=== PATIENT | male | born 1930 | race Caucasian/White ===

== ENCOUNTER 2016-11-04 10:16 | Day surgery (SDC) | payer OTHER ==
--- NOTE | 2016-11-03 21:47 | GHP ---
[f rep st] HISTORY AND PHYSICAL DATE OF ADMISSION: 11/04/2016 The patient is an 85-year-old male who returns to our office to discuss port placement for chemothera py. The patient has pancreatic cancer and underwent surgery with Dr. Mariscal in late July 2016. Hi s hospital course was significant for the development of pneumonia as well as episode of atrial fibr illation. ALLERGIES: Sulfa. MEDICATIONS: Aspirin, Flexeril, Flonase, terazosin, triamcinolone, vitamin D. PAST SURGICAL HISTORY: Pancreatic duodenectomy, appendectomy, hernia repair, cataract surgery. PAST MEDICAL HISTORY: Pancreatic cancer, hypertension. SOCIAL HISTORY: Nonsmoking. No alcohol. Lives with his . Today is his birthday. REVIEW OF SYSTEMS: He had negative review of systems. PHYSICAL EXAMINATION: GENERAL: Patient is a pleasant male in no apparent distress. HEAD AND NECK: Normocephalic, atraumatic. No masses. No lymphadenopathy. CHEST: CTA bilaterally. HEART: Regul ar rhythm and rate. ABDOMEN: Soft, nontender. No masses. EXTREMITIES: No lower extremity edema. IMPRESSION: This is an 85-year-old male in need of intravenous access for chemotherapy. RECOMMENDATION: Port placement was discussed with the patient in detail including the specific risks of pneumothorax, infection, vessel injury, hematoma, nerve injury. The patient elects to proceed [facility] scheduling surgery for tomorrow on November 04, 2016. /[id number]/MODL
[~2016-11-04 10:16] MED LIST: ceFAZolin 2 GM/DEXTROSE 100 ML IV ONE
[2016-11-04] MEDS ORDERED: SODIUM BICARBONATE 10 MEQ/10 ML SYR IVP ONE (13:52)
[2016-11-04] MEDS ORDERED: BUPIVACAINE 0.5% 30 ML SDV ONE (13:53)
[2016-11-04] MEDS ORDERED: LIDO/EPI 1% **for epidural** 30 ML SDV ONE (13:53)
[2016-11-04] MEDS ORDERED: CEFAZOLIN 2 GM/DEXTROSE/100 ML BAG IV ONE (13:55)
[2016-11-04] MEDS ORDERED: fentaNYL 100 MCG/2 ML INJ ONE (13:58)
[2016-11-04] MEDS ORDERED: PROPOFOL 200 MG/20 ML VIAL ONE (13:58)
[2016-11-04] MEDS ORDERED: ONDANSETRON 4 MG/2 ML VIAL ONE (14:40)
[2016-11-04] MEDS ORDERED: DEXAMETHASONE 4 MG/ML VIAL ONE (14:41)
--- NOTE | 2016-11-04 15:24 | DX ---
Portable Chest November 04, 2016, 1512 Hours Clinical Indications: Port placement. Findings: Frontal view (only) shows clear lungs and no masses. Heart size and pulmonary vessels sal ear normal. No evidence of pleural effusion. No pneumothorax. The left chest port tip terminates at the SVC/right atrial junction. Some linear atelectatic change is present at the base. Impression: No evidence of pneumothorax post chest port placement. Results called to the PACU nurse by Dr. Conner November 04, 2016, 1520 hours.
--- NOTE | 2016-11-04 19:25 | DX ---
Fluoroscopy Greater Than One Hour Clinical indication: Port Placement. Fluoroscopy time 43 seconds. Dose 7.8 mGy. Findings: Fluoroscopy was provided for port placement. Single spot images obtained. The port is not v isualized on this image. Impression: Fluoroscopy provided for port placement.
--- NOTE | 2016-11-07 16:40 | GOP ---
[f rep st] OPERATIVE REPORT DATE OF OPERATION: 11/04/2016 SURGEON: Francisco Mariscal MD PREOPERATIVE DIAGNOSIS: Pancreatic cancer. POSTOPERATIVE DIAGNOSIS: Pancreatic cancer. PROCEDURE PERFORMED: Left subclavian port placement with fluoroscopic guidance. FINDINGS: Patient was found to have good position and good flow of the catheter. DESCRIPTION OF PROCEDURE: The patient was taken to the operating room where he received satisfactory general endotracheal anesthesia by Dr. Bucio. He was placed in the supine position, prepped and dr aped in the usual sterile fashion. He was then placed in the Trendelenburg. A single stick was made in the left subclavian vein. A guidewire was introduced. Position was confirmed with fluoroscopy. A subcu pocket was made in the 2nd intercostal space. Port tubing was passed from that pocket to th e subclavian insertion site, trimmed to the appropriate length using fluoroscopic guidance, and then introduced into the right atrium via the introducer sheath and dilator system. Port was secured to t he fascia with 3-0 Vicryl. The pocket was closed with 3-0 Vicryl for the subcu, and a 4-0 Prolene erwin bcuticular stitch for the skin. The entrance site was closed with a Prolene mattress suture. All wo unds were infiltrated with % Marcaine. The catheter was flushed with heparin and saline an d appeared to function well. Position was confirmed with x-ray. He tolerated the procedure well. H e was taken to the recovery room in good condition. There were no complications. /[id number]/MODL
== END 2016-11-04 16:40 | disposition home or self-care (01) ==
LOC: FSGY 10:16
PROVIDERS: ATTEND Surgery
PROC: 0JH60XZ Insertion of Tunneled Vascular Access Device into Chest Subcutaneous Tissue and Fascia, Open Approach (ICD-10-PCS; principal; 2016-11-04 12:15)
PROC: 02HV33Z Insertion of Infusion Device into Superior Vena Cava, Percutaneous Approach (ICD-10-PCS; principal; 2016-11-04 12:15)
DX: C25.9 Malignant neoplasm of pancreas, unspecified (principal); I48.91 Unspecified atrial fibrillation; I10 Essential (primary) hypertension
CPT/HCPCS: C1788; J0690; J1100; J2405; J2704; J3010

== ENCOUNTER → 2017-01-20 | Outpatient (CLI) | payer OTHER | LOC: FIMAGING 13:44 | PROVIDERS: ATTEND Internal Medicine Hematology & Oncology | DX: Z12.89 Encounter for screening for malignant neoplasm of other sites (principal); C25.0 Malignant neoplasm of head of pancreas ==

== ENCOUNTER → 2017-10-05 | Outpatient (CLI) | payer OTHER | LOC: BMCIMAGING 15:44 → EDSTATUS 15:46 | PROVIDERS: ATTEND Internal Medicine | DX: J44.9 Chronic obstructive pulmonary disease, unspecified (principal); J84.10 Pulmonary fibrosis, unspecified ==

== ENCOUNTER → 2017-11-08 | Outpatient (CLI) | payer OTHER | LOC: FIMAGING 16:09 | PROVIDERS: ATTEND Surgery | DX: C25.9 Malignant neoplasm of pancreas, unspecified (principal); Z95.9 Presence of cardiac and vascular implant and graft, unspecified ==

== ENCOUNTER 2018-01-17 09:25 | Outpatient (CLI) | payer OTHER | END 2018-01-17 13:50 | disposition home or self-care (01) | LOC: FOBOP 09:25 | PROVIDERS: ATTEND Internal Medicine Hematology & Oncology | PROC: 30233N1 Transfusion of Nonautologous Red Blood Cells into Peripheral Vein, Percutaneous Approach (ICD-10-PCS; principal; 2018-01-17) | DX: C25.9 Malignant neoplasm of pancreas, unspecified (principal) | CPT/HCPCS: 36430; P9016; P9021 ==

== ENCOUNTER → 2018-02-07 | Outpatient (CLI) | payer OTHER ==
[~2018-02-07] MED LIST changes: +ACETAMINOPHEN 325 MG TAB PO ONE; -ceFAZolin 2 GM/DEXTROSE 100 ML IV ONE; +diphenhydrAMINE 25 MG CAP PO ONE
== END ==
LOC: FOBOP 09:57
PROVIDERS: ATTEND Internal Medicine Hematology & Oncology
PROC: 30233N1 Transfusion of Nonautologous Red Blood Cells into Peripheral Vein, Percutaneous Approach (ICD-10-PCS; principal; 2018-02-07)
DX: C25.9 Malignant neoplasm of pancreas, unspecified (principal)
CPT/HCPCS: 36430; J1642; P9016

== ENCOUNTER 2018-07-25 12:27 | Outpatient (CLI) | payer OTHER ==
[2018-07-25] MEDS ORDERED: ACETAMINOPHEN 325 MG TAB PO ONE (13:00)
[2018-07-25] MEDS ORDERED: diphenhydrAMINE 25 MG CAP PO ONE (13:00)
== END 2018-07-25 15:45 | disposition home or self-care (01) ==
LOC: FOBOP 12:27
PROVIDERS: ATTEND Internal Medicine Hematology & Oncology
PROC: 30233N1 Transfusion of Nonautologous Red Blood Cells into Peripheral Vein, Percutaneous Approach (ICD-10-PCS; principal; 2018-07-25)
DX: C25.9 Malignant neoplasm of pancreas, unspecified (principal)
CPT/HCPCS: 36430; J1642; P9016

== ENCOUNTER 2018-08-08 13:04 | Outpatient (CLI) | payer OTHER ==
[2018-08-08] MEDS ORDERED: ACETAMINOPHEN 325 MG TAB ONE (13:34)
[2018-08-08 13:41] VITALS: BP 118/55
[2018-08-08] MEDS ORDERED: ACETAMINOPHEN 325 MG TAB PO ONE (13:45)
== END 2018-08-08 18:18 | disposition home or self-care (01) ==
LOC: FOBOP 13:04
PROVIDERS: ATTEND Internal Medicine Hematology & Oncology
PROC: 30253N1 (ICD-10-PCS; principal; 2018-08-08)
DX: C25.9 Malignant neoplasm of pancreas, unspecified (principal)
CPT/HCPCS: 36430; J1642; P9016

== ENCOUNTER → 2018-09-06 | Outpatient (CLI) | payer OTHER | LOC: FOBOP 12:16 | PROVIDERS: ATTEND Internal Medicine Hematology & Oncology | DX: D64.9 Anemia, unspecified (principal) | CPT/HCPCS: 36430; J1642; P9016; P9040 ==

== ENCOUNTER → 2018-10-11 | Outpatient (CLI) | payer OTHER | LOC: FOBOP 14:35 | PROVIDERS: ATTEND Internal Medicine Hematology & Oncology | PROC: 30233N1 Transfusion of Nonautologous Red Blood Cells into Peripheral Vein, Percutaneous Approach (ICD-10-PCS; principal; 2018-10-11) | DX: C25.9 Malignant neoplasm of pancreas, unspecified (principal) | CPT/HCPCS: 36430; J1642; P9016 ==

== ENCOUNTER 2018-10-20 08:39 | Emergency (ER) | payer OTHER ==
--- NOTE | 2018-10-20 08:41 | EDPHY ---
HPI/HX/ROS/PE/MDM Narrative: CHIEF COMPLAINT: Hyperventilating, disoriented HPI: The patient is an 87 y/o male with a history of pancreatic cancer on palliative care with impending hospice placement arriving via EMS due to hyperventilation and altered mentation noticed by his this morning. His came back from the bathroom this morning and found him slumped on the edge of the bed and breathing rapidly. He was disoriented and she was unable to get him back into bed so she called EMS. She reports he was "fine yesterday" and was normally conversant and oriented. Upon EMS arrival he was only responsive to his name and on my assessment he is only minimally able to follow commands and cannot tell me his name. He is unable to provide any history. EMS notes he was tachycardic with diminished lower breath sounds. He has a DNR with minimal selective treatment and his states they "definitely do not want" any invasive treatments and asks that we do "whatever you can do to get him back home. He wants to at home." She denies noticing a fever, vomiting, diarrhea , recent illness, or recent trauma. REVIEW OF SYSTEMS: A comprehensive 10 system review of systems is otherwise negative aside from elements mentioned in the history of present illness. PMH: Atrial fibrillation, pancreatic cancer 10/10/18 - Hct 19 SOCIAL HISTORY: Lives at home in [place] with his . DNR with selective "non- invasive" treatment. Oncologist: Dr. Arshad. PHYSICAL EXAM: General:Patient is somnolent, minimally following commands, mildly pale. HR 120 , SpO2 88% on room air. ENT:Eyes are normal to inspection. ENT inspection normal. Neck: Normal inspection. Full range of motion. Respiratory:No respiratory distress. Breath sounds diminished bilaterally. Cardiovascular: Irregular tachycardic rate and rhythm. Strong peripheral pulses. Normal cap refill. Port in right chest. Abdomen:The abdomen is nontender to palpation. There are no peritoneal signs. Back: Normal to inspection. No tenderness to palpation. Skin: Mildly pale. No rash. Warm and dry. Extremities: 1+ pedal edema bilaterally, otherwise normal appearance. Full range of motion. Neuro: Oriented x0. Unable to tell me his name. Spontaneous movement in all extremities. ED Course: This is an 87 y/o male with pancreatic cancer due to transition into hospice care who presents with altered mentation and hypoxemia noticed by his shortly after she woke this morning. The patient is somnolent, disoriented, mildly pale, and minimally able to follow commands on assessment. He is tachycardic with an irregular rhythm and has decreased breath sounds bilaterally. only wants enough treatment to get the patient back home so he can enter hospice care there. Plan for IV, labs, EKG, chest x-ray. is unsure at this time if she would want to proceed with antibiotics if patient has pneumonia. 500mL IV NS ordered. The 12 lead EKG was interpreted by myself. See hard copy and/or "tracemaster" electronic copy for interpretation. Chest x-ray: lytic lesion left posterior sixth rib, no clear pneumonia 1025: Reassessed patient and discussed findings with him, his , and hospice mortician supplies sales representative now at bedside. Patient looks significantly improved. His eyes are open and he is conversant. He reports he feels much better. We have not found a source of infection. The only interventions he has received here is O2 and IV fluids. The goal is to discharge home in hospice care, who will arrange to get O2 at the patient's home. Case management has coordinated hospice care and O2 home delivery this afternoon. Family is comfortable taking him home off O2 in the meantime. - Data Points Imaging Results: Imaging Impressions Chest X-Ray 10/20/18 08:44 Impression: 1. Increased atelectasis and opacification in the right lung base and small right pleural effusion. Stable atelectasis or scarring left lung base. 2. Lytic destructive lesion indicating osseous metastatic disease in the posterior left sixth rib. 3. Other chronic findings as above. Imaging: I viewed and interpreted images myself Laboratory Results: Laboratory Results 10/20/18 08:50 10/20/18 08:50 10/20/18 10/20/18 10/20/18 08:50 08:50 08:50 WBC RBC Hgb Hct MCV MCH MCHC RDW Plt Count MPV Neut % (Auto) Lymph % (Auto) Cavalier % (Auto) Eos % (Auto) Baso % (Auto) Nucleat RBC Rel Count Absolute Neuts (auto) Absolute Lymphs (auto) Absolute Monos (auto) Absolute Eos (auto) Absolute Basos (auto) Absolute Nucleated RBC Immature Gran % Seg Neutrophils % Band Neutrophils % Lymphocytes % Monocytes % Eosinophils % Basophils % Metamyelocytes % Myelocytes % Promyelocytes % Blast Cells % Immature Gran # Absolute Seg Neuts Absolute Band Neuts Absolute Lymphocytes Absolute Monocytes Absolute Eosinophils Absolute Basophils Absolute Metamyelocyte Absolute Myelocytes Absolute Promyelocytes Absolute Plasma Cells Absolute Blast Cells Plasma Cells % Smudge Cells Platelet Estimate Large Platelets Giant Platelets PT INR Sodium 130 mEq/L L mEq/L (135-145) Potassium 4.5 mEq/L mEq/L (3.5-5.2) Chloride 98 mEq/L mEq/L (97-110) Carbon Dioxide 22 mEq/l mEq/l (22-31) Anion Gap 10 mEq/L mEq/L (6-14) BUN 17 mg/dL mg/dL (7-23) Creatinine 0.8 mg/dL mg/dL (0.7-1.3) Estimated GFR > 60 Glucose 125 mg/dL H mg/dL (70-100) Calcium 8.4 mg/dL L mg/dL (8.5-10.4) Total Bilirubin 1.6 mg/dL H mg/dL (0.1-1.4) Conjugated Bilirubin 0.9 mg/dL H mg/dL (0.0-0.5) Unconjugated Bilirubin 0.7 mg/dL mg/dL (0.0-1.1) AST 65 IU/L H IU/L (17-59) ALT 64 IU/L IU/L (21-72) Alkaline Phosphatase 495 IU/L H IU/L (38-126) Total Protein 6.9 g/dL g/dL (6.3-8.2) Albumin 3.3 g/dL L g/dL (3.5-5.0) Nasal Influenza A PCR NEGATIVE FOR FLU A (NEGATIVE) Nasal Influenza B PCR NEGATIVE FOR FLU B (NEGATIVE) Patient ABO/Rh O POSITIVE Antibody Screen NEGATIVE 10/20/18 10/20/18 08:50 08:50 WBC 3.92 10^3/uL 10^3/uL (3.80-9.50) RBC 2.36 10^6/uL L 10^6/uL (4.40-6.38) Hgb 8.1 g/dL L g/dL (13.7-17.5) Hct 24.3 % L % (40.0-51.0) MCV 103.0 fL H fL (81.5-99.8) MCH 34.3 pg H pg (27.9-34.1) MCHC 33.3 g/dL g/dL (32.4-36.7) RDW 26.3 % H % (11.5-15.2) Plt Count 129 10^3/uL L 10^3/uL (150-400) MPV 12.5 fL H fL (8.7-11.7) Neut % (Auto) Not Reported Lymph % (Auto) Not Reported Cavalier % (Auto) Not Reported Eos % (Auto) Not Reported Baso % (Auto) Not Reported Nucleat RBC Rel Count Not Reported Absolute Neuts (auto) Not Reported Absolute Lymphs (auto) Not Reported Absolute Monos (auto) Not Reported Absolute Eos (auto) Not Reported Absolute Basos (auto) Not Reported Absolute Nucleated RBC Not Reported Immature Gran % Not Reported Seg Neutrophils % 89.7 % % Band Neutrophils % 2.9 % % Lymphocytes % 5.9 % % Monocytes % 0.0 % % Eosinophils % 0.0 % % Basophils % 1.5 % % Metamyelocytes % 0.0 % % Myelocytes % 0.0 % % Promyelocytes % 0.0 % % Blast Cells % 0.0 % % Immature Gran # Not Reported Absolute Seg Neuts 0.00 10^3/uL L 10^3/uL (1.70-6.50) Absolute Band Neuts 0.00 10^3/uL 10^3/uL (0.00-0.70) Absolute Lymphocytes 0.00 10^3/uL L 10^3/uL (1.00-3.00) Absolute Monocytes 0.00 10^3/uL L 10^3/uL (0.30-0.80) Absolute Eosinophils 0.00 10^3/uL L 10^3/uL (0.03-0.40) Absolute Basophils 0.00 10^3/uL L 10^3/uL (0.02-0.10) Absolute Metamyelocyte 0.00 10^3/mL 10^3/mL (0.00-0.00) Absolute Myelocytes 0.00 10^3/mL 10^3/mL (0.00-0.00) Absolute Promyelocytes 0.00 10^3/uL 10^3/uL (0.00-0.00) Absolute Plasma Cells 0.00 10^3/uL 10^3/uL (0.00-0.00) Absolute Blast Cells 0.00 10^3/uL 10^3/uL (0.00-0.00) Plasma Cells % 0.0 % % Smudge Cells 1+ H Platelet Estimate ADEQUATE (ADEQ) Large Platelets PRESENT H Giant Platelets PRESENT H PT 15.6 SEC H SEC (12.0-15.0) INR 1.22 H (0.83-1.16) Sodium Potassium Chloride Carbon Dioxide Anion Gap BUN Creatinine Estimated GFR Glucose Calcium Total Bilirubin Conjugated Bilirubin Unconjugated Bilirubin AST ALT Alkaline Phosphatase Total Protein Albumin Nasal Influenza A PCR Nasal Influenza B PCR Patient ABO/Rh Antibody Screen Medications Given: Discontinued Medications Sodium Chloride (Ns) 500 mls @ 1,000 mls/hr IV EDNOW ONE PRN Reason: Protocol Stop: 10/20/18 09:13 Last Admin: 10/20/18 09:05 Dose: 500 mls General Time Seen by Provider: 10/20/18 08:40 Initial Vital Signs: Initial Vital Signs Temperature (C) 37.7 C 10/20/18 08:45 Heart Rate 118 H 10/20/18 08:45 Respiratory Rate 26 H 10/20/18 08:45 Blood Pressure 138/92 H 10/20/18 08:45 O2 Sat (%) 90 L 10/20/18 08:45 O2 Delivery Mode Nasal Cannula O2 (L/minute) 3 Allergies/Adverse Reactions: Sulfa (Sulfonamide Antibiotics) Allergy (Unknown, Verified 07/25/18 13:38) Home Medications: Medication Instructions Recorded Aspirin EC [Aspirin EC 81 mg (*)] 81 mg PO DAILY 08/01/16 Cholecalciferol Vit D3 [Vitamin D3 2,000 units PO DAILY 08/22/16 (*)] Fluticasone Nasal [Flonase Nasal 2 sprays EACHNARE DAILY 08/22/16 [place]] [place]-3 Fatty Acids [Fish Oil 1000 1,000 mg PO DAILY 08/22/16 mg (*)] Terazosin HCl [Hytrin 5 MG (*)] 10 mg PO HS 08/22/16 Triamcinolone 0.1% [Triamcinolone 1 sal TP DAILY PRN 08/22/16 0.1% Cream (*)] Famotidine [Pepcid] 20 mg PO BID PRN 08/08/18 Departure - Departure Disposition: Home, Routine, Self-Care Clinical Impression: Metastasis from pancreatic cancer, Hypoxemia Altered mental status Qualifiers: Altered mental status type: unspecified Qualified Code(s): R41.82 - Altered mental status, unspecified Condition: Fair Instructions: Hypoxemia (DC) Additional Instructions: Follow up with hospice resources provided. Use home O2 as directed. Referrals: Christian Arshad MD [Primary Care Provider] - As per Instructions Report Scribed for: Christian Bledsoe Report Scribed by: Tiffany Aguirre Date of Report: 10/20/18 Time of Report: 08:57 Physician Review and Approval Statement: Portions of this note were transcribed by an ED scribe. I personally performed the history, physical exam, and medical decision making; and confirm the accuracy of the information in the transcribed note.
[2018-10-20] MEDS ORDERED: NS 500 ML IV ONE (08:44)
[2018-10-20 09:29] LABS: INR 1.22 (0.83-1.16); PROTIME(PATIENT) 15.6 SEC (12.0-15.0)
[2018-10-20 09:36] LABS: PLATELET COUNT 129 10^3/uL (150-400)
--- NOTE | 2018-10-20 11:30 | ASMTCMCOM ---
CM Note CM Note Notes: Pt presented to the ED for hypoxia and AMS. Pt has a history of pancreatic cancer and is followed by Dr Arshad at [facility]. Pt currently is seen by [facility] at home where he lives with his life partner, Chery. Pt would like to return home on Hospice. Da social services director, Oscar, arrived to the ED And spoke w/pt's family. Pt to [place] cely w/[facility] and an RN will visit between 1-2pm; Da arranged for various DME and home oxygen to be delivered early this afternoon. Hospice admit order FaxAttached and sent via [employer] [place]. Chery feels comfortable transporting pt home in her car. CM available for further assistance if needed. Date Signed: 10/20/2018 11:30 AM Electronically Signed By:Ramona Menchaca RN
[2018-10-20 11:32] VITALS: BP 130/60
--- NOTE | 2018-10-20 21:43 | CPEKG ---
Test Reason : OPEN Blood Pressure : / mmHG Vent. Rate : 112 BPM Atrial Rate : 113 BPM P-R Int : 110 ms QRS Dur : 146 ms QT Int : 328 ms P-R-T Axes : -05 097 004 degrees QTc Int : 448 ms Sinus tachycardia Multiple ventricular premature complexes RBBB and LPFB Confirmed by Samuel Harkins ([id number]) on 10/20/2018 9:43:11 PM Referred By: Confirmed By:Samuel Harkins
== END 2018-10-20 12:06 | disposition home or self-care (01) ==
LOC: EDUNIT#
DX: R41.82 Altered mental status, unspecified (principal); R06.4 Hyperventilation; C25.9 Malignant neoplasm of pancreas, unspecified; E86.9 Volume depletion, unspecified